=== PATIENT | male | born 1980 | race African-American/Black ===

== ENCOUNTER → 2020-01-01 | Outpatient (REF) | payer BC | LOC: M SFHCLERA 20:03 | PROVIDERS: ATTEND Physician Assistant | DX: R22.1 Localized swelling, mass and lump, neck (principal) ==

== ENCOUNTER → 2022-07-26 | Outpatient (REF) | LOC: M EMP 07:56 | PROVIDERS: ATTEND Family Medicine | DX: Z20.822 Contact with and (suspected) exposure to COVID-19 (principal) ==